=== PATIENT | female | born 1990 | race Caucasian/White ===

== ENCOUNTER 2018-06-22 11:10 | Inpatient (IN) ==
[2018-06-22] MEDS ORDERED: IOPAMIDOL 100 ML BOTTLE IV ONE (11:11)
[2018-06-22] MEDS ORDERED: ONDANSETRON 4 MG/2 ML VIAL IV ONE (11:51)
--- NOTE | 2018-06-22 11:53 | Emergency Department Note ---
Abdominal Pain HPI - General Chief Complaint: Abdominal Pain Stated Complaint: Abd pain Time Seen by Provider: 06/22/18 11:16 Source: patient Mode of arrival: ambulatory Limitations: no limitations - History of Present Illness HPI Narrative: This 27-year-old female comes to the emergency room with a history of abdominal discomforts and problems in the past. [facility] who gave her some pills but she is uncertain of exact nature type. She describes onset of pain this morning around 6 AM that is so severe she can hardly move. She has not had pain like this previously. She is not passing flatus. She is unable to push to have a bowel movement but does not feel like she has to. She has been nauseated and had some dry heaves. She denies diarrhea. She has had constipation for a couple of days. She denies hematochezia. She has no urinary dysuria but some frequency that is new. She denies fevers but has not checked it. She has had some hot and cold spells today. No sweatiness. Has some back pain through the lower back area. She also had a headache last evening. REVIEW OF SYSTEMS: See above also Denies chest pain, palpitations. Denies shortness of breath. Has a history of hepatitis C but has not been treated for this. Denies rashes. Has a history of seizure disorder and is supposed to be on a medication sprinkles but takes them intermittently. Denies depression. Has a history of anxiety and bipolar. Denies history of sexually transmitted infections. Has had some recent fatigue tiredness. - Related Data Home Medications Medication Instructions Recorded Confirmed No Known Home Meds 06/22/18 06/22/18 Allergies Allergy/AdvReac Type Severity Reaction Status Date / Time latex Allergy Verified 06/22/18 11:11 Abdominal Pain PMH - Past Medical History Medical history: Reports: seizures (not consistently taking medication.), other (poor dental health. HEPATITIS C. DENIES: ovarian cysts, PUD, pancreatitis, diverticulitis.). Denies: cancer, DM, hypertension, thyroid disease Surgical history ED: Reports: appendectomy, tubal ligation Psychiatric history: Reports: anxiety, bipolar. Denies: depression - Social History Smoking status: Current every day smoker (1 pack per day.) Alcohol use: Reports: Heavy (6-8 larger Margaritas per day) Drug use: Reports: marijuana (Fairly regular fairly heavy but not daily per mother.), methamphetamine (most recently smoked a couple of days ago (8.29.18)) , other (Past illegal or recreational. Past narcotics.) Physical Exam Limitations: no limitations General appearance: alert, in distress (Some moaning and raising in squirming and pain rather continuously.) Head: atraumatic, normocephalic Eye: Present: normal appearance, PERRL, EOMI. Absent: scleral icterus, conjunctival injection ENT: mucous membranes moist, other (Edentulous upper.) Neck: Present: trachea midline. Absent: lymphadenopathy, thyromegaly Respiratory: Present: normal lung sounds bilaterally. Absent: respiratory distress, wheezes, stridor, accessory muscle use, prolonged expiratory phase Cardiovascular: Present: regular rate, normal rhythm. Absent: systolic murmur, diastolic murmur Abdominal: Present: soft, tenderness. Absent: distention, guarding, rebound, rigidity, organomegaly, mass Abdominal tenderness: Present: diffuse Extremities: Absent: pedal edema, pretibial edema, calf tenderness Back: Present: tenderness (mildly subjectively mid to mid lower.). Absent: CVA tenderness (R), CVA tenderness (L), spinous process tenderness Neurological: Present: alert, oriented X3 Psychiatric: Present: normal mood, other (Some serious and consternation facies. ) Skin: Present: warm, dry Course Course Narrative: 11:37 AM New abdominal pain on a history of alcoholism and past illegal/recreational drug use and fairly regular or heavy marijuana use. Multiple labs. Also constipation - start with plain films for imaging. 1:12 PM Still some nausea. Will give some promethazine. Labs are with a white count of 6.4 and no anemia. Slightly concentrated hemoglobin at 15.8. INR is normal at 1.1. She does not appear to be dehydrated with a urine specific gravity 1.016 and a BUN of 3 and creatinine of 0.6. Does have elevated liver function tests with 214 AST in 93 ALT. Lipase is moderately elevated at 498 with normal being less than 60. Drug screen is positive for amphetamines and THC. UA dip has mild leukocyte esterase but had 10 apneas and only 3 WBCs. X-rays abdomen are unremarkable. Will go to ultrasound to look for causes of her diffuse abdominal pain. 2:30 PM Approximately Ultrasound demonstrated edema around the pancreas making pancreatitis most likely. Etiology is still most likely alcohol but with no previous recent CT will order CT abdomen and pelvis because of the diffuseness of her abdominal pain. Her nausea/vomiting is significantly improved but she continues to have significant pain least when she is holding still. Urine drug screen included positive for amphetamines. Patient admits to smoking meth a couple of days ago. Pending discussion also with hospitalist regarding oral challenge and whether this could be handled outpatient versus needs inpatient observation. Vital Signs Temperature 97.8 F 06/22/18 11:11 Pulse Rate 74 06/22/18 11:11 Respiratory Rate 20 06/22/18 11:11 Blood Pressure 154/124 06/22/18 11:11 Pulse Oximetry (%) 94 06/22/18 11:11 Temperature 97.8 F 06/22/18 11:11 Pulse Rate 73 06/22/18 15:11 Respiratory Rate 20 06/22/18 11:11 Blood Pressure 132/97 06/22/18 15:11 Pulse Oximetry (%) 98 06/22/18 15:11 Abdominal Pain - MDM Narrative Medical decision making narrative: In discussing patient's circumstances with hospitalist, Dr. Byers, agreement that would be best for patient to be admitted and given additional treatment for nausea, pain, IV fluid hydration, monitoring for alcohol withdrawal, etc. He kindly accepts this patient's care. - Lab Data Result diagrams: 06/22/18 11:59 06/22/18 11:59 Lab Results 06/22/18 06/22/18 06/22/18 Range/Units 11:15 11:15 11:59 WBC 6.4 (4.5-11.0) K/mcL RBC 5.05 (4.00-5.20) M/mcL Hgb 15.8 H (12.0-15.0) g/dL Hct 46.3 (36.0-48.0) % MCV 91.7 (80.0-100.0) fL MCH 31.3 (26.0-34.0) pg MCHC 34.2 (31.0-36.0) g/dL RDW 12.6 (11.5-14.5) % Plt Count 208 (140-440) K/mcL MPV 9.1 (7.4-10.4) fL Gran % 74.0 (38.0-78.0) % Lymph % (Auto) 15.1 L (15.5-49.0) % [place] % (Auto) 9.8 (1.0-12.0) % Eos % (Auto) 0.5 (0.0-7.0) % Baso % (Auto) 0.6 (0.0-2.0) % Gran # 4.7 (1.8-8.0) K/mcL Lymph # (Auto) 1.0 L (1.5-4.8) K/mcL [place] # (Auto) 0.6 (0.1-0.9) K/mcL Eos # (Auto) 0 (0.0-0.7) K/mcL Baso # (Auto) 0 (0.0-0.3) K/mcL PT (11.9-14.5) sec INR (0.9-1.1) APTT (20-37) sec Sodium (133-145) mmol/L Potassium (3.3-5.1) mmol/L Chloride (96-108) mmol/L Carbon Dioxide (22-30) mmol/L Anion Gap (8-16) BUN (6-20) mg/dl Creatinine (0.6-1.1) mg/dl GFR Calculation Glucose (70-105) mg/dL Calcium (8.6-10.4) mg/dl Total Bilirubin (0.0-1.0) mg/dL AST (0-37) U/l ALT (0-40) U/l Alkaline Phosphatase (39-117) U/L C-Reactive Protein (0.0-0.8) mg/dl Total Protein (5.9-8.4) gm/dL Albumin (3.2-5.2) gm/dL Globulin (2.2-3.7) gm/dL Albumin/Globulin Ratio (1.0-2.3) Lipase (7-60) U/L Urine Color Yellow Urine Appearance Cloudy Urine pH 8.0 (5.0-9.0) Ur Specific [place] 1.016 (1.000-1.035) Urine Protein 30 A (NEG) mg/dL Urine Glucose (UA) Negative (NEG) mg/dL Urine Ketones Neg (NEG) mg/dL Urine Occult Blood Neg (<0.03) mg/dL Urine Nitrate Neg (NEG) Urine Bilirubin Neg (NEG) mg/dL Urine Urobilinogen 2.0 A (NEG) mg/dL Ur Leukocyte Esterase 25 A (NEG) /uL Urine RBC 1 (0-1) /hpf Urine WBC 3 (0-4) /hpf Ur Squamous Epith Cells 10 H (0-4) /hpf Urine Bacteria 0 (0) /hpf Urine Mucus Many A (0) /hpf Ur Culture Indicated? No Urine Opiates Screen None detected (NONDETECTED) Ur Opiates Confirm Not Reportable Ur Oxycodone Screen None detected (NONDETECTED) Urine Methadone Screen None detected (NONDETECTED) Ur Methadone Confirm Not Reportable Ur Barbiturates Screen None detected (NONDETECTED) Ur Barbiturate Confirm Not Reportable Ur Phencyclidine Scrn None detected (NONDETECTED) Urine PCP Confirm Not Reportable Ur Amphetamines Screen Suspect positive A (NONDETECTED) U Benzodiazepines Scrn None detected (NONDETECTED) U Benzodiazepine Confm Not Reportable Urine Cocaine Screen None detected (NONDETECTED) Urine Cocaine Confirm Not Reportable U Cannabinoids Confirm Not Reportable U Marijuana (THC) Screen Suspect positive A (NONDETECTED) Urine Alcohol None detected (NONDETECTED) 06/22/18 06/22/18 Range/Units 11:59 11:59 WBC (4.5-11.0) K/mcL RBC (4.00-5.20) M/mcL Hgb (12.0-15.0) g/dL Hct (36.0-48.0) % MCV (80.0-100.0) fL MCH (26.0-34.0) pg MCHC (31.0-36.0) g/dL RDW (11.5-14.5) % Plt Count (140-440) K/mcL MPV (7.4-10.4) fL Gran % (38.0-78.0) % Lymph % (Auto) (15.5-49.0) % [place] % (Auto) (1.0-12.0) % Eos % (Auto) (0.0-7.0) % Baso % (Auto) (0.0-2.0) % Gran # (1.8-8.0) K/mcL Lymph # (Auto) (1.5-4.8) K/mcL [place] # (Auto) (0.1-0.9) K/mcL Eos # (Auto) (0.0-0.7) K/mcL Baso # (Auto) (0.0-0.3) K/mcL PT 14.5 (11.9-14.5) sec INR 1.1 (0.9-1.1) APTT 26 (20-37) sec Sodium 139 (133-145) mmol/L Potassium 3.3 (3.3-5.1) mmol/L Chloride 98 (96-108) mmol/L Carbon Dioxide 29 (22-30) mmol/L Anion Gap 12.0 (8-16) BUN 3 L (6-20) mg/dl Creatinine 0.6 (0.6-1.1) mg/dl GFR Calculation 123 Glucose 90 (70-105) mg/dL Calcium 9.3 (8.6-10.4) mg/dl Total Bilirubin 1.0 (0.0-1.0) mg/dL AST 214 H (0-37) U/l ALT 93 H (0-40) U/l Alkaline Phosphatase 106 (39-117) U/L C-Reactive Protein < 0.3 (0.0-0.8) mg/dl Total Protein 7.4 (5.9-8.4) gm/dL Albumin 4.1 (3.2-5.2) gm/dL Globulin 3.3 (2.2-3.7) gm/dL Albumin/Globulin Ratio 1.2 (1.0-2.3) Lipase 498 H (7-60) U/L Urine Color Urine Appearance Urine pH (5.0-9.0) Ur Specific [place] (1.000-1.035) Urine Protein (NEG) mg/dL Urine Glucose (UA) (NEG) mg/dL Urine Ketones (NEG) mg/dL Urine Occult Blood (<0.03) mg/dL Urine Nitrate (NEG) Urine Bilirubin (NEG) mg/dL Urine Urobilinogen (NEG) mg/dL Ur Leukocyte Esterase (NEG) /uL Urine RBC (0-1) /hpf Urine WBC (0-4) /hpf Ur Squamous Epith Cells (0-4) /hpf Urine Bacteria (0) /hpf Urine Mucus (0) /hpf Ur Culture Indicated? Urine Opiates Screen (NONDETECTED) Ur Opiates Confirm Ur Oxycodone Screen (NONDETECTED) Urine Methadone Screen (NONDETECTED) Ur Methadone Confirm Ur Barbiturates Screen (NONDETECTED) Ur Barbiturate Confirm Ur Phencyclidine Scrn (NONDETECTED) Urine PCP Confirm Ur Amphetamines Screen (NONDETECTED) U Benzodiazepines Scrn (NONDETECTED) U Benzodiazepine Confm Urine Cocaine Screen (NONDETECTED) Urine Cocaine Confirm U Cannabinoids Confirm U Marijuana (THC) Screen (NONDETECTED) Urine Alcohol (NONDETECTED) Disposition Pt seen by FRONT OFFICE ADMINISTRATOR/PA only: No Clinical Impression: Elevated LFTs, Chronic alcoholism, Amphetamine abuse Nausea & vomiting Qualifiers: Vomiting type: unspecified Vomiting Intractability: non-intractable Qualified Code(s): R11.2 - Nausea with vomiting, unspecified Abdominal pain Qualifiers: Abdominal location: generalized Qualified Code(s): R10.84 - Generalized abdominal pain Pancreatitis Qualifiers: Chronicity: acute Pancreatitis type: alcohol induced Acute pancreatitis complication: no infection or necrosis Qualified Code(s): K85.20 - Alcohol induced acute pancreatitis without necrosis or infection Chronic hepatitis C Qualifiers: Hepatic coma status: without hepatic coma Qualified Code(s): B18.2 - Chronic viral hepatitis C Disposition: Xfer As Inpt ([facility]) Condition: Fair Referrals: Alfred Galeano MD [Primary Care Provider] -
[2018-06-22] MEDS: HYDROmorphone 2 MG/ML VIAL IV PRN ×5 (12:00→22:35)
[2018-06-22 12:24] LABS: Appearance,Urine CLOUDY; Bacteria,Urine 0 /hpf (0); Bilirubin,Urine NEG (NEG); Color,Urine YELLOW; Glucose,Urine (UA) NEGATIVE (NEG); Leukocyte Esterase,Urine 25 /uL (NEG); Mucus,Urine MANY /hpf (0); Protein,Urine 30 mg/dL (NEG); Specific Gravity,Urine 1.016 (1.000-1.035); Urine Blood NEG mg/dL (<0.03); Urine RBC 1 /hpf (0-1); Urine Squamous Epithelial Cell 10 /hpf (0-4); Urine WBC 3 /hpf (0-4)
[2018-06-22 12:26] LABS: Amphetamine Screen,Urine SUSPECT POSITIVE (NONDETECTED); Benzodiazepines Screen,Urine NONE DETECTED (NONDETECTED); Cocaine Screen,Urine NONE DETECTED (NONDETECTED); Opiate Screen,Urine NONE DETECTED (NONDETECTED); Oxycodone, Urine Screen NONE DETECTED (NONDETECTED)
[2018-06-22 12:29] LABS: Basophils # (Auto) 0 K/mcL (0.0-0.3); Basophils % (Auto) 0.6 % (0.0-2.0); Eosinophils # (Auto) 0 K/mcL (0.0-0.7); Eosinophils % (Auto) 0.5 % (0.0-7.0); Lymphocytes % (Auto) 15.1 % (15.5-49.0); Mean Cell Volume 91.7 fL (80.0-100.0); Mean Corpuscular HGB Conc 34.2 g/dL (31.0-36.0); Mean Corpuscular Hemoglobin 31.3 pg (26.0-34.0); Monocytes # (Auto) 0.6 K/mcL (0.1-0.9); Monocytes % (Auto) 9.8 % (1.0-12.0); Platelet Count 208 K/mcL (140-440); RBC 5.05 M/mcL (4.00-5.20); Red Cell Distribution Width 12.6 % (11.5-14.5)
--- NOTE | 2018-06-22 12:47 | XRay Report ---
CLINICAL INFORMATION: Diffuse abdominal pain and vomiting COMPARISON: None. FINDINGS: The stool gas pattern is unremarkable. There is no free air, soft tissue mass, organomegaly or pathologic calcification. IMPRESSION: Normal abdomen Interpreted and Authenticated by: Moiz Walsh 06/22/18
[2018-06-22 13:00] LABS: ALT/SGPT 93 U/l (0-40); Albumin 4.1 gm/dL (3.2-5.2); Albumin/Globulin Ratio 1.2 (1.0-2.3); Alkaline Phosphatase 106 U/L (39-117); Blood Urea Nitrogen 3 mg/dl (6-20); C-Reactive Protein < 0.3 mg/dl (0.0-0.8); Lipase 498 U/L (7-60)
[2018-06-22] MEDS ORDERED: PROMETHAZINE 25 MG/ML VIAL IV ONE (13:13)
--- NOTE | 2018-06-22 15:15 | Ultrasound Report ---
CLINICAL INFORMATION: Diffuse abdominal pain COMPARISON: None. FINDINGS: Liver is normal in size and echotexture without focal hepatic lesion. Gallbladder and bile ducts are normal: CBD is 4 mm. The pancreas is mildly enlarged and hypoechoic which likely indicates pancreatitis. Small amount of fluid is seen in the peripancreatic region Both kidneys, spleen, aorta and IVC are normal in size and echotexture IMPRESSION: Suspect simple pancreatitis. Please correlate with amylase/lipase and consider upper abdomen CT Interpreted and Authenticated by: Moiz Walsh 06/22/18
[2018-06-22] MEDS ORDERED: LACTATED RINGERS 1,000 ML IV ONE (16:08)
--- NOTE | 2018-06-22 16:12 | Cat Scan Report ---
CLINICAL INFORMATION: Abdominal pain COMPARISON: None. TECHNIQUE: Following enteric contrast, 80 cc of Isovue-300 were injected intravenously, and 60 seconds later, 0.625 mm helical slices were obtained from the mid heart through the subtrochanteric regions. Following reconstruction, 2.5 mm sagittal, coronal and axial reformatted images were processed and reviewed at bone, lung and soft tissue windows. Five minutes later, 0.625 mm helical slices were obtained from the mid heart through the kidneys and viewed at soft tissue windows.The exam was performed using radiation dose optimization techniques including, but not limited to, automated exposure control, adjustment of the mA and/or kV according to patient size and use of iterative reconstruction technique. FINDINGS: Lung bases show no abnormality - no effusions. The visualized heart is normal. Images through the abdomen show minimal fatty change within the liver, but no focal hepatic lesions. The gallbladder and bile ducts are normal: CBD is 6 mm. The pancreas is diffusely enlarged with inhomogeneous low attenuation and a moderate amount of fluid in the peripancreatic fat planes extending into the lesser sac and upper retroperitoneum compatible with simple pancreatitis. The pancreatic duct is normal caliber - 2 mm. There is no abscess, necrosis pseudocyst or other complication of pancreatitis Both kidneys, adrenal glands, spleen and aorta, including aortic branches, are normal in size, configuration and attenuation without focal lesion. Stomach, small and large bowel are unremarkable. Appendix is not identified; however, there is no inflammation in the region of the appendix. The appendix may been surgically resected. Images through the pelvis show anteflexed uterus which is moderately enlarged: 10 x 6 cm. There is a scar in the anterior mid uterine body. Urinary bladder is normal. The region of the ovaries are normal. Mild enlargement of the periuterine uterine venous plexus. Tubal ligation clips noted. Bone windows show moderate broad T11-T12 disc spur complex left-sided asymmetry resulting in mild central canal and mild bilateral IV foraminal narrowing. No osseous lesions IMPRESSION: 1. Simple pancreatitis. Moderate fluid in the peripancreatic fat planes, lesser sac and upper retroperitoneum. 2. Moderately enlarged, anteflexed uterus. Most common cause would be adenomyosis. Mild congestion of the periuterine venous plexus. 3. Mild T11-T12 disc spur complex resulting in mild central canal and bilateral IV foraminal narrowing Interpreted and Authenticated by: Moiz Walsh 06/22/18
--- NOTE | 2018-06-22 17:22 | Internal Med History&Physical ---
Medical - H&P: HPI Patient information: Note initiated : 06/22/18 at 5:20 pm Service Date, if different from initiated Date: [] Patient: Ramya Parra a 27 y/o F admitted on for Abd pain. Chief Complaint: [] History of present illness: Ms. Parra is a 27 year old F with h/o hep c, heavy etoh consumption presents to the ER today for evaluation of abdominal pain. Patient on my eval was drowsy , s/p medication effect? patient history from chart and talking with the boyfriend in the room The pt has h/o heavy etoh consumption, she did not tell me how much but boyfriend noted she wakes up and starts drinking till the end of the day, also admitted thc, but denies other substances. pt notes pain in abdomen, every where started yesterday, nausea and some vomiting, worse with activity, worse with movement, better with laying still. This AM pain got worse, mother decided o bring her in. Denies fever, but has chills and hot flashes. The patient in the ER noted to be hemodynamically stable, labs stable, K 3.3, lipase 498, CT shows simple pancreatitis with periipancreatic fluid collection. Patient is being admitted to the hospital for further management. Unable to determine last drink, but boyfriend notes that she has h/o withdrawal and seizures. Educated pt and boyfriend the nature of disease and possibility of high risk mortality and morbidity because of pancreatitis. All systems: reviewed and no additional remarkable complaints except as stated ( as per HPI) Medical - H&P: PMH Medical history: Medical History Dental caries (Acute) Toothache (Acute) Bite by animal (Acute) Animal bite of upper arm (Acute) Encounter for wound re-check (Acute) Alcoholic intoxication (Acute) Dental caries (Acute) Contusion (Acute) hep c Family history: reviewed and not pertinent Social history: etoh drinker, heavy substace abuse, thc admitted, also suspect meth (ER provider noted that she agreed to it) Medical - H&P: Meds Home Medications Medication Instructions Recorded Confirmed Type No Known Home Meds 06/22/18 06/22/18 History Allergies Allergy/AdvReac Type Severity Reaction Status Date / Time latex Allergy Verified 06/22/18 11:11 Medical - H&P: Exam - Constitutional Vitals: Temp Pulse Resp BP Pulse Ox 97.8 F 96 H 20 135/97 98 06/22/18 11:11 06/22/18 17:05 06/22/18 11:11 06/22/18 16:33 06/22/18 17:05 Exam: GENERAL: The patient is a well-developed, well-nourished in no apparent distress. Is drowsy and oriented x3 . VITAL SIGNS: Reviewed and as noted elsewhere. HEENT: Head is normocephalic and atraumatic. Extraocular muscles are intact. Pupils are equal, round, and reactive to light. Nares appeared normal. Mouth appears any without lesions. Mucous membranes are dry, absent teeth. uin upper jaw, unable to do complete exam, lack of pt cooperation. NECK: Normal to inspection, Supple, No lymphadenopathy or thyromegaly. LUNGS: Air entry equal on both sides, no wheezing, crackles or rhonchi noted. No accessory muscles of respiration HEART: Regular rate and rhythm normal, S1 and S2 heard, no Gallop, S3 or Rub Noted, No Gross murmur heard. ABDOMEN: Soft, diffuse generalized tenderness, hypoactive bowel sounds. No hepatosplenomegaly was noted. EXTREMITIES: No cyanosis, clubbing, rash, lesions or edema. NEUROLOGIC: Cranial nerves II through XII are grossly intact. Motor and Sensory System Grossly Intact PSYCHIATRIC: drowsy, agitated SKIN: No ulceration or wounds noted, No jaundice, No rash noted. Medical - H&P: Reslt - Labs CBC & Chem 7: 06/22/18 11:59 06/22/18 11:59 Labs: Short CBC 06/22/18 Range/Units 11:59 WBC 6.4 (4.5-11.0) K/mcL Hgb 15.8 H (12.0-15.0) g/dL Hct 46.3 (36.0-48.0) % Plt Count 208 (140-440) K/mcL BMP 06/22/18 11:59 Sodium 139 Potassium 3.3 Chloride 98 Carbon Dioxide 29 BUN 3 L Creatinine 0.6 Glucose 90 Calcium 9.3 Liver Function 06/22/18 Range/Units 11:59 Total Bilirubin 1.0 (0.0-1.0) mg/dL AST 214 H (0-37) U/l ALT 93 H (0-40) U/l Alkaline Phosphatase 106 (39-117) U/L Albumin 4.1 (3.2-5.2) gm/dL Urine 06/22/18 Range/Units 11:15 Urine Color Yellow Urine Appearance Cloudy Urine pH 8.0 (5.0-9.0) Ur Specific [place] 1.016 (1.000-1.035) Urine Protein 30 A (NEG) mg/dL Urine Glucose (UA) Negative (NEG) mg/dL Medical - H&P: A/P - Narrative A/P Narrative: A/P acute pancreatitis Alcohol withdrawal hepatitis C Heavy alcohol abuse Polysubstance Abuse Plan Admit to med surg IV fluids Pain management with narcotics IV fluids, replace K monitor lytes trend lipase Ciwa protocol ativan prn iv thiamine Full code liquid diet Hep for dvt prophylaxis.
[2018-06-22] MEDS ORDERED: cloNIDine HCL 0.1 MG TABLET PO PRN (18:03)
[2018-06-22] MEDS ORDERED: HALOPERIDOL LACTATE 5 MG/ML VIAL IM PRN (18:03)
[2018-06-22] MEDS ORDERED: KETOROLAC 30 MG/ML VIAL IV PRN (18:03)
[2018-06-22] MEDS ORDERED: DIAZEPAM 5 MG TABLET PO PRN (18:03)
[2018-06-22] MEDS ORDERED: NALOXONE HCL 0.4 MG/ML VIAL IV PRN (18:03)
[2018-06-22] MEDS ORDERED: LORazepam 2 MG/ML VIAL IV PRN (18:03)
[2018-06-22] MEDS ORDERED: HYDROmorphone 2 MG/ML VIAL ONE (18:19)
[2018-06-22] MEDS: DEXTROSE 5%-LR W/20MEQ KCL 1,000 ML IV SCH (18:21)
[2018-06-22] MEDS: PANTOPRAZOLE 40 MG VIAL IV SCH (19:40)
[2018-06-22] MEDS: 0.9 % SODIUM CHLORIDE 10 ML SYRINGE IV SCH ×3 (19:43→21:19)
[2018-06-22 20:29] LABS: Amylase 355 U/L (28-100); Lipase 1425 U/L (7-60)
[2018-06-22] MEDS: HEPARIN 5,000 UNIT/ML VIAL SQ SCH (20:37)
[2018-06-22] MEDS: THIAMINE 100 MG in 0.9 % SODIUM CHLORIDE 50 ML IV SCH (20:46)
[2018-06-22] MEDS: oxyCODONE HCL 5 MG TABLET PO PRN (22:34)
[2018-06-23] MEDS: DEXTROSE 5%-LR W/20MEQ KCL 1,000 ML IV SCH ×3 (00:46→09:11)
[2018-06-23] MEDS: HYDROmorphone 2 MG/ML VIAL IV PRN ×4 (00:53→18:10)
[2018-06-23] MEDS: oxyCODONE HCL 5 MG TABLET PO PRN ×2 (02:27→07:15)
[2018-06-23] MEDS: 0.9 % SODIUM CHLORIDE 10 ML SYRINGE IV SCH ×2 (05:34)
[2018-06-23 05:35] LABS: Basophils # (Auto) 0 K/mcL (0.0-0.3); Basophils % (Auto) 0.2 % (0.0-2.0); Eosinophils # (Auto) 0 K/mcL (0.0-0.7); Eosinophils % (Auto) 0.1 % (0.0-7.0); Granulocytes % (Auto) 85.6 % (38.0-78.0); Lymphocytes # (Auto) 0.7 K/mcL (1.5-4.8); Lymphocytes % (Auto) 6.2 % (15.5-49.0); Mean Corpuscular HGB Conc 33.3 g/dL (31.0-36.0); Mean Corpuscular Hemoglobin 31.3 pg (26.0-34.0); Monocytes # (Auto) 0.9 K/mcL (0.1-0.9); Monocytes % (Auto) 7.9 % (1.0-12.0); Platelet Count 214 K/mcL (140-440); RBC 5.56 M/mcL (4.00-5.20); Red Cell Distribution Width 12.6 % (11.5-14.5)
[2018-06-23 05:44] LABS: ALT/SGPT 58 U/l (0-40); Albumin 3.4 gm/dL (3.2-5.2); Albumin/Globulin Ratio 1.2 (1.0-2.3); Alkaline Phosphatase 91 U/L (39-117); Amylase 540 U/L (28-100); Bilirubin,Direct 0.3 mg/dL (0.0-0.3); Blood Urea Nitrogen 4 mg/dl (6-20); Gamma Glutamyl Transpeptidase 464 U/L (5-36); Uric Acid 3.6 mg/dL (2.5-8.0)
[2018-06-23 06:00] LABS: Lipase 1741 U/L (7-60)
[2018-06-23] MEDS: PANTOPRAZOLE 40 MG VIAL IV SCH (07:16)
[2018-06-23] MEDS ORDERED: LORazepam 2 MG/ML VIAL IV PRN (08:05)
[2018-06-23] MEDS: THIAMINE 100 MG in 0.9 % SODIUM CHLORIDE 50 ML IV SCH (08:32)
[2018-06-23] MEDS ORDERED: FOLIC ACID 1 MG TABLET PO SCH (09:00)
[2018-06-23] MEDS ORDERED: DIAZEPAM 5 MG TABLET PO SCH ×2 (09:00→17:00)
[2018-06-23] MEDS ORDERED: MAGNESIUM SULFATE 2 GM/50 ML BAG IV ONE (09:00)
[2018-06-23] MEDS ORDERED: MULTIVIT,THER IRON,CA,FA & MIN 1 TABLET PO SCH (09:00)
[2018-06-23] MEDS: HEPARIN 5,000 UNIT/ML VIAL SQ SCH (09:12)
[2018-06-23] MEDS ORDERED: 0.9 % SODIUM CHLORIDE 1,000 ML IV ONE ×2 (12:49→13:31)
--- NOTE | 2018-06-23 12:55 | Internal Med Progress Note ---
Medical - PN: Subj Patient information: Note initiated : 06/23/18 at 12:53 pm Service Date, if different from initiated Date: [] Patient: Ramya Parra a 27 y/o F admitted on 06/22/18 for Abd Pain/Pancreatitis , Alcohol Withdrawal. Chief Complaint: [] Interval history: Ms. Parra is a 27 year old F with h/o hep c, heavy etoh consumption presents to the ER today for evaluation of abdominal pain. Patient on my eval was drowsy , s/p medication effect? patient history from chart and talking with the boyfriend in the room The pt has h/o heavy etoh consumption, she did not tell me how much but boyfriend noted she wakes up and starts drinking till the end of the day, also admitted thc, but denies other substances. pt notes pain in abdomen, every where started yesterday, nausea and some vomiting, worse with activity, worse with movement, better with laying still. This AM pain got worse, mother decided o bring her in. Denies fever, but has chills and hot flashes. The patient in the ER noted to be hemodynamically stable, labs stable, K 3.3, lipase 498, CT shows simple pancreatitis with periipancreatic fluid collection. Patient is being admitted to the hospital for further management. Unable to determine last drink, but boyfriend notes that she has h/o withdrawal and seizures. Educated pt and boyfriend the nature of disease and possibility of high risk mortality and morbidity because of pancreatitis. 06/23 Patient seen examined, overnight stble, but very tachcyardic, hr 120-130 this AM CIWA Scores high, needing frequent assesstment Lipase trending up now 1700's pt still has abdominal pain, but not complaining much, on ativan and dilaudid for now Her hb trended up today? abdomen is somewhat distrended only 250 cc documented urine output. will place [place], on talking with nurse, pt missed the urine hat? Given her pancreatitis issue, need for closer monitoring, tachcyardia, alcohol withdrawal, will xfer her to PCU status. Pertinent ROS: Denies headache, dizziness Denies chest pain, palpitations Denies cough or shortness of breath present abdominal pain, and nausea and vomiting. Additional PMFSH (Level 3 Only): Medical History Dental caries (Acute) Toothache (Acute) Bite by animal (Acute) Animal bite of upper arm (Acute) Encounter for wound re-check (Acute) Alcoholic intoxication (Acute) Dental caries (Acute) Contusion (Acute) - Constitutional Vitals: Vital Signs Temp Pulse Resp BP Pulse Ox 97.2 F 117 H 16 123/110 97 06/23/18 12:00 06/23/18 12:00 06/23/18 12:00 06/23/18 12:00 06/23/18 12:00 Period Temp Pulse Resp BP Sys/Márquez Pulse Ox Last 24 Hr 96.5 F-97.3 F 70-117 16-16 123-160/88-111 92-100 Intake and Output 06/22/18 06/23/18 06/23/18 21:59 05:59 13:59 Intake Total 1383 / 1383 1155 / 1155 1000 / 1000 Output Total 450 / 450 Balance 1383 / 1383 705 / 705 1000 / 1000 Weight 150 lb Intake & Output: Intake & Output 06/22/18 06/23/18 06/23/18 21:59 05:59 13:59 Intake Total 1383 / 1383 1155 / 1155 1000 / 1000 Output Total 450 / 450 Balance 1383 / 1383 705 / 705 1000 / 1000 Weight 150 lb Intake: IV 1383 / 1383 668 / 668 1000 / 1000 Dextrose 5%-Lr W/20Meq KCl 1, 383 / 383 617 / 617 1000 / 1000 000 ml @ 150 mls/hr IV .Q6H40M [facility] Rx#:[id number] Lactated Ringers 1,000 ml @ 1000 / 1000 Wide Open IV BOLUS ONE Rx#: [id number] Vitamin B1 100 mg In Sodium 51 / 51 Chloride 0.9% 50 ml @ 50 mls/hr IV DAILY [facility] Rx#:[id number] Oral 487 / 487 Output: Void Amount 250 / 250 Emesis 200 / 200 Other: Urine Appearance Clear Clear Urine Color Dark Shraddha Dark Shraddha # Voids 1 1 Exam: Constitutional; Afebrile, cooperative, drowsy, not in distress. low grade tremors Eyes- No icterus, , No periorbital swelling Ears- Ext ear normal, hearing normal to conversation. Neck- Midline trachea, supple Respiratory system: Air Entry equal on both sides, No crackles or wheezing, no rhonchi. CVS- Rate tachycardic rhythm regular, S1,S2 heard, no gallop, no rub. Abdomen- mildly distended, tender overall to deep palpation, hypoactive bowel sounds. no organomegaly, CAR DELIVERER- AOOx3, moving all extremities, no gross focal deficit noted. Medical - PN: Obj Da - Labs CBC & Chem 7: 06/23/18 04:02 06/23/18 04:02 Labs: Abnormal Lab Results 06/23/18 06/23/18 06/22/18 04:02 04:02 18:36 WBC 11.1 H RBC 5.56 H Hgb 17.4 H Hct 52.2 H Gran % 85.6 H Lymph % (Auto) 6.2 L Gran # 9.5 H Lymph # (Auto) 0.7 L BUN 4 L Glucose 131 H Magnesium 1.3 L Total Bilirubin 1.1 H GGT 464 H AST 84 H ALT 58 H Amylase 540 H 355 H Lipase 1741 H 1425 H Urine Protein Urine Urobilinogen Ur Leukocyte Esterase Ur Squamous Epith Cells Urine Mucus Ur Amphetamines Screen U Marijuana (THC) Screen 06/22/18 06/22/18 06/22/18 11:59 11:59 11:15 WBC RBC Hgb 15.8 H Hct Gran % Lymph % (Auto) 15.1 L Gran # Lymph # (Auto) 1.0 L BUN 3 L Glucose Magnesium Total Bilirubin GGT AST 214 H ALT 93 H Amylase Lipase 498 H Urine Protein Urine Urobilinogen Ur Leukocyte Esterase Ur Squamous Epith Cells Urine Mucus Ur Amphetamines Screen Suspect positive A U Marijuana (THC) Screen Suspect positive A 06/22/18 11:15 WBC RBC Hgb Hct Gran % Lymph % (Auto) Gran # Lymph # (Auto) BUN Glucose Magnesium Total Bilirubin GGT AST ALT Amylase Lipase Urine Protein 30 A Urine Urobilinogen 2.0 A Ur Leukocyte Esterase 25 A Ur Squamous Epith Cells 10 H Urine Mucus Many A Ur Amphetamines Screen U Marijuana (THC) Screen Meds: Medications Clonidine HCl (Catapres) 0.1 mg PO Q4HP PRN PRN Reason: Alcohol Withdrawal Last Admin: 06/23/18 03:06 Dose: 0.1 mg Diazepam (Valium) 5 mg PO Q8H [facility] Last Admin: 06/23/18 09:11 Dose: 5 mg Folic Acid (Folic Acid) 1 mg PO DAILY [facility] Last Admin: 06/23/18 09:11 Dose: 1 mg Haloperidol Lactate (Haldol) 0.5 mg IM Q2HP PRN PRN Reason: Alcohol Withdrawal Heparin Sodium (Porcine) (Heparin) 5,000 unit SQ Q12 [facility] Last Admin: 06/23/18 09:12 Dose: 5,000 unit Hydromorphone HCl (Dilaudid) 0.5 - 1 mg IV Q2HP PRN PRN Reason: PAIN LEVEL > 6 Last Admin: 06/23/18 03:14 Dose: 0.5 mg Potassium Cl/Dextrose/Lact Ringer's (Dextrose 5%-Lr W/20meq Kcl) 1,000 mls @ 150 mls/hr IV .Q6H40M [facility] Last Admin: 06/23/18 09:11 Dose: 150 mls/hr Thiamine HCl 100 mg/ Sodium (Chloride) 51 mls @ 50 mls/hr IV DAILY [facility] Last Admin: 06/23/18 08:32 Dose: 50 mls/hr Sodium Chloride (Sodium Chloride 0.9%) 1,000 mls @ 0 mls/hr IV BOLUS ONE Stop: 06/23/18 12:50 Iron Carb/Multivit/[place]/Folic Acid (Multivitamin W/Minerals) 1 tab PO DAILY [facility] Last Admin: 06/23/18 09:11 Dose: 1 tab Ketorolac Tromethamine (Toradol) 30 mg IV Q6HP PRN PRN Reason: Pain Stop: 06/24/18 17:12 Last Admin: 06/23/18 07:38 Dose: 30 mg Lorazepam (Ativan) 0 mg IV Q2HP PRN; Protocol PRN Reason: Alcohol Withdrawal Naloxone HCl (Narcan) 0.1 mg IV Q2MIN PRN PRN Reason: Opiate Reversal Oxycodone HCl (Roxicodone) 5 mg PO Q4HP PRN PRN Reason: Pain Level 2-6 Last Admin: 06/23/18 07:15 Dose: 5 mg Pantoprazole Sodium (Protonix) 40 mg IV BIDAC [facility] Last Admin: 06/23/18 07:16 Dose: 40 mg Sodium Chloride (Saline Flush) 10 ml IV Q8 [facility] Last Admin: 06/23/18 05:34 Dose: Not Given Sodium Chloride (Saline Flush) 10 ml IV Q8 [facility] Last Admin: 06/23/18 05:34 Dose: Not Given Medical - PN: A/P - Time Spent With Patient Total time spent is greater than 50% in coordination of care (as documented) at patient's floor/unit and/or counseling patient: - Narrative A/P Narrative: A/P acute pancreatitis Alcohol withdrawal hepatitis C Heavy alcohol abuse Polysubstance Abuse Hypomagnesemia Plan transfer to ICU [facility] valium and IV ativan for Alcohol withdrawal Trend lipase amylase labs show hemoconcentration low urine output IV fluids ongoing at 150cc /hr, give 1 L saline bolus repeat labs pm Pain management with dilaudid adequate replamce Magnesium continue IV thiamine Full code liquid diet Hep for dvt prophylaxis.
[2018-06-23] MEDS ORDERED: DEXTROSE 5%-LR W/20MEQ KCL 1,000 ML IV SCH (13:31)
[2018-06-23] MEDS ORDERED: NALOXONE HCL 0.4 MG/ML VIAL IV PRN (13:31)
[2018-06-23] MEDS ORDERED: cloNIDine HCL 0.1 MG TABLET PO PRN (13:31)
[2018-06-23] MEDS ORDERED: KETOROLAC 30 MG/ML VIAL IV PRN (13:31)
[2018-06-23] MEDS ORDERED: HALOPERIDOL LACTATE 5 MG/ML VIAL IM PRN (13:31)
[2018-06-23] MEDS ORDERED: oxyCODONE HCL 5 MG TABLET PO PRN (13:31)
[2018-06-23] MEDS ORDERED: 0.9 % SODIUM CHLORIDE 10 ML SYRINGE IV SCH ×2 (14:00)
[2018-06-23] MEDS: LORazepam 2 MG/ML VIAL IV PRN ×2 (14:16→19:55)
[2018-06-23 16:06] LABS: Basophils # (Auto) 0 K/mcL (0.0-0.3); Basophils % (Auto) 0.1 % (0.0-2.0); Eosinophils # (Auto) 0 K/mcL (0.0-0.7); Eosinophils % (Auto) 0.3 % (0.0-7.0); Granulocytes % (Auto) 86.5 % (38.0-78.0); Lymphocytes # (Auto) 0.5 K/mcL (1.5-4.8); Lymphocytes % (Auto) 5.2 % (15.5-49.0); Mean Cell Volume 92.8 fL (80.0-100.0); Mean Corpuscular HGB Conc 33.7 g/dL (31.0-36.0); Mean Corpuscular Hemoglobin 31.3 pg (26.0-34.0); Monocytes # (Auto) 0.8 K/mcL (0.1-0.9); Monocytes % (Auto) 7.9 % (1.0-12.0); Platelet Count 160 K/mcL (140-440); RBC 5.11 M/mcL (4.00-5.20); Red Cell Distribution Width 12.7 % (11.5-14.5)
[2018-06-23 16:21] LABS: Blood Urea Nitrogen 5 mg/dl (6-20); C-Reactive Protein 4.9 mg/dl (0.0-0.8)
[2018-06-23] MEDS ORDERED: PANTOPRAZOLE 40 MG VIAL IV SCH (17:00)
--- NOTE | 2018-06-23 20:32 | Nephrology Consult Note ---
History of Present Illness - Reason for Consult Patient information: Note initiated : 06/23/18 at 8:27 pm Service Date, if different from initiated Date: [] Patient: Ramya Parra 27 y/o F admitted on 06/22/18 for Abd Pain/Pancreatitis , Alcohol Withdrawal. Chief Complaint: [] Consult date: 06/23/18 acute renal failure Requesting physician: Mike Byers - Chief Complaint abdominal pain - History of Present Illness Patient is a 27 y/o white female with PMH of alcohol abuse who is admitted with acute pancreatitis. Patient is noted to be oliguric today and hence nephrology is been consulted Patient is unable to provide any history given ETOH withdrawal Patient presented to the ER yesterday with c/o abdominal pain, ongoing for a few days per her boy friend. She also had h/o recurrent vomiting for several days and poor po intake for 2-3 days before she came to the ER. She has h/o drinking beer all day long (containing 12% alcohol) and she would do this to prevent withdrawal She had no h/o using NSAIDS, tylenol no h/o SOB, CP, edema on presentation no h/o fever She had a CT abdomen with contrast done in the ER which showed simple pancreatitis and elevated lipase and hence hospitalised Patient today developed ETOH withdrawal and is been treated for the same, she also developed abdominal distension and oliguria Review of Systems ROS unobtainable: due to mental status All systems PM: reviewed and no additional remarkable complaints except as stated Past History Past medical history: h/o hepatitis C, not treated for the same h/o seizures Past surgical history: none Past family history: not pertinent Past social history: h/o alcohol abuse h/o methamphetamine use smokes half a pack of cig every day Medications and Allergies Home Medications Medication Instructions Recorded Confirmed Type No Known Home Meds 06/22/18 06/22/18 History Allergies Allergy/AdvReac Type Severity Reaction Status Date / Time latex Allergy Rash Verified 06/22/18 18:05 Exam - Vital Signs Vital signs: Temp Pulse Resp BP Pulse Ox 97.5 F 117 H 20 133/100 95 06/23/18 20:00 06/23/18 12:00 06/23/18 20:01 06/23/18 20:01 06/23/18 20:03 - General Appearance General appearance: appears started age EENT: mucous membranes moist Neck: no JVD Respiratory: clear Cardiology: no rub, no edema, regular rate, rapid rhythm Gastrointestinal: distended (tense, abdominal pressure noted to be 18 ) Integumentary: warm and dry Neurologic: obtunded Musculoskeletal: no erythema Psychiatric: mood/affect appropriate Results - Lab Results 06/23/18 15:29 06/23/18 15:29 Most recent lab results Calcium 7.6 mg/dl (8.6-10.4) L 06/23/18 15:29 Phosphorus 3.5 mg/dL (2.7-4.5) 06/23/18 04:02 Magnesium 1.3 mg/dL (1.6-2.5) L 06/23/18 04:02 Assessment and Plan (1) Acute renal failure patient is oliguric since this afternoon, had 2 unmeasured voids earlier during the day her s.creatinine is 0.5 unchanged from yesterday She likely has ATN from acute pancreatitis, possible volume depletion and use of contrast she has abdominal distension with increased abdominal pressure and ? this is contributing consider surgical consult given acute rise in abdominal pressure Continue IVF avoid nephrotoxic medications monitor I/O, daily weights, renal function will follow along Thank you for giving me an opportunity to participate in Ms Parra's medical care, appreciate it Status: Acute
[2018-06-23] MEDS ORDERED: HEPARIN 5,000 UNIT/ML VIAL SQ SCH (21:00)
--- NOTE | 2018-06-23 21:15 | Transfer Summary ---
Transfer Discharge Sum: Prov Patient information: Note initiated : 06/23/18 at 9:12 pm Service Date, if different from initiated Date: [] Patient: Ramya Parra 27 y/o F admitted on 06/22/18 for Abd Pain/Pancreatitis , Alcohol Withdrawal. Chief Complaint: [] Date of admission: 06/22/18 17:45 Discharge Date: 06/23/18 Primary care physician: Alfred Galeano Admitting clinician: Mike Byers Consults: 06/22/18 Consult to Physician [CONS] Stat Comment: Consulting Provider: Mike Byers Reason For Exam: Physician to Consult 06/23/18 15:41 Consult to Physician [CONS] Routine Comment: oligoruia Consulting Provider: Adele Colon Reason For Exam: Physician to Consult Discharging clinician: Mike Byers Receiving physician/facility: Dr Maciel Transfer Discharge Sum: Med - Medications Active and Home Medications: Home Medications No Known Home Meds 06/22/18 [History Confirmed 06/22/18] Active Medications Clonidine HCl (Catapres) 0.1 mg PO Q4HP PRN PRN Reason: Alcohol Withdrawal Diazepam (Valium) 5 mg PO Q8H [facility] Last Admin: 06/23/18 17:22 Dose: 5 mg Folic Acid (Folic Acid) 1 mg PO DAILY [facility] Haloperidol Lactate (Haldol) 0.5 mg IM Q2HP PRN PRN Reason: Alcohol Withdrawal Heparin Sodium (Porcine) (Heparin) 5,000 unit SQ Q12 [facility] Hydromorphone HCl (Dilaudid) 0.5 - 1 mg IV Q2HP PRN PRN Reason: PAIN LEVEL > 6 Last Admin: 06/23/18 18:10 Dose: 1 mg Potassium Cl/Dextrose/Lact Ringer's (Dextrose 5%-Lr W/20meq Kcl) 1,000 mls @ 150 mls/hr IV .Q6H40M [facility] Last Admin: 06/23/18 17:22 Dose: 150 mls/hr Thiamine HCl 100 mg/ Sodium (Chloride) 51 mls @ 50 mls/hr IV DAILY [facility] Iron Carb/Multivit/[place]/Folic Acid (Multivitamin W/Minerals) 1 tab PO DAILY [facility] Ketorolac Tromethamine (Toradol) 30 mg IV Q6HP PRN PRN Reason: Pain Stop: 06/24/18 17:12 Lorazepam (Ativan) 0 mg IV Q2HP PRN; Protocol PRN Reason: Alcohol Withdrawal Last Admin: 06/23/18 19:55 Dose: 1 mg Naloxone HCl (Narcan) 0.1 mg IV Q2MIN PRN PRN Reason: Opiate Reversal Oxycodone HCl (Roxicodone) 5 mg PO Q4HP PRN PRN Reason: Pain Level 2-6 Last Admin: 06/23/18 17:31 Dose: 5 mg Pantoprazole Sodium (Protonix) 40 mg IV BIDAC [facility] Last Admin: 06/23/18 17:22 Dose: 40 mg Sodium Chloride (Saline Flush) 10 ml IV Q8 [facility] Last Admin: 06/23/18 14:18 Dose: Not Given Sodium Chloride (Saline Flush) 10 ml IV Q8 [facility] Last Admin: 06/23/18 14:18 Dose: Not Given Transfer Discharge Sum: Hosp Hospital course: MMs. Parra is a 27 year old F with h/o hep c, heavy etoh consumption presents to the ER today for evaluation of abdominal pain. Patient on my eval was drowsy , s/p medication effect? patient history from chart and talking with the boyfriend in the room The pt has h/o heavy etoh consumption, she did not tell me how much but boyfriend noted she wakes up and starts drinking till the end of the day, also admitted thc, but denies other substances. pt notes pain in abdomen, every where started yesterday, nausea and some vomiting, worse with activity, worse with movement, better with laying still. This AM pain got worse, mother decided o bring her in. Denies fever, but has chills and hot flashes. The patient in the ER noted to be hemodynamically stable, labs stable, K 3.3, lipase 498, CT shows simple pancreatitis with periipancreatic fluid collection. Patient is being admitted to the hospital for further management. Unable to determine last drink, but boyfriend notes that she has h/o withdrawal and seizures. Educated pt and boyfriend the nature of disease and possibility of high risk mortality and morbidity because of pancreatitis. 06/23 Patient seen examined, overnight stble, but very tachcyardic, hr 120-130 this AM CIWA Scores high, needing frequent assesstment Lipase trending up now 1700's pt still has abdominal pain, but not complaining much, on ativan and dilaudid for now Her hb trended up today? abdomen is somewhat distrended only 250 cc documented urine output. will place [place], on talking with nurse, pt missed the urine hat? Given her pancreatitis issue, need for closer monitoring, tachcyardia, alcohol withdrawal, will xfer her to PCU status. Patient condition worsened, her urine output dropped, not much urine since this afternoon. IV bolus x 2 given without much repsonse. abdomen distended, tender to palpate. Intraabdominal pressure is 18mmhg, Discussed with nephrology advised surgery mimaal Discussed [facility] who noted that the patient is too complicate to be managed in the hospital at this time, advised transfer to a higher center Spoke with Dr Maciel who graciously accepted the patient for transfer to [facility]. Family notified. - Time Spent with Patient Total time spent providing and/or coordinating transfer services: Greater than 30 minutes Transfer Discharge Sum: Exam - Constitutional Vitals: Vital Signs Temp Pulse Resp BP BP Pulse Ox 06/23/18 20:03 95 06/23/18 20:01 20 133/100 95 06/23/18 20:00 97.5 F 16 06/23/18 19:31 150/100 94 06/23/18 19:16 94 06/23/18 19:01 14 148/93 94 06/23/18 18:02 158/104 98 06/23/18 17:31 159/113 98 06/23/18 17:01 161/93 06/23/18 16:31 148/109 97 06/23/18 16:30 97.6 F 20 154/105 95 06/23/18 16:07 94 06/23/18 16:01 154/105 97 06/23/18 15:31 151/100 96 06/23/18 15:01 140/97 96 06/23/18 14:31 121/107 95 06/23/18 14:16 125/89 95 06/23/18 14:01 147/107 98 06/23/18 13:57 137/102 98 06/23/18 12:00 97.2 F 117 H 16 123/110 97 06/23/18 08:00 96.5 F L 111 H 16 150/88 97 06/23/18 03:49 114 H 137/103 98 06/23/18 03:21 97.3 F 103 H 16 146/107 95 06/22/18 23:30 97.3 F 96 H 16 140/111 92 Intake and Output 06/23/18 06/23/18 06/23/18 05:59 13:59 21:59 Intake Total 1155 / 1155 1098 / 1098 3319 / 3319 Output Total 450 / 450 30 / 30 Balance 705 / 705 1098 / 1098 3289 / 3289 Intake: IV 668 / 668 1098 / 1098 2999 / 2999 Dextrose 5%-Lr W/20Meq KCl 1, 617 / 617 1000 / 1000 000 ml @ 150 mls/hr IV .Q6H40M [facility] Rx#:[id number] Vitamin B1 100 mg In Sodium 51 / 51 Chloride 0.9% 50 ml @ 50 mls/hr IV DAILY [facility] Rx#:[id number] Oral 487 / 487 320 / 320 Output: Urine Catheter Amount 30 / 30 Void Amount 250 / 250 Emesis 200 / 200 Other: Urine Appearance Clear Clear Urine Color Dark Shraddha Dark Shraddha Uretheral ([place]) Dark Shraddha # Voids 1 1 2 Weight 150 lb 160 lb 11.2 oz Patient Weight 06/24/18 05:59 Weight 160 lb 11.2 oz Additional comments: Constitutional; Afebrile, drowsy, Eyes- No icterus, , No periorbital swelling Ears- Ext ear normal, hearing normal to conversation. Neck- Midline trachea, supple Respiratory system: Air Entry equal on both sides, No crackles or wheezing, no rhonchi. CVS- Rate tachycardic,rhythm regular, S1,S2 heard, no gallop, no rub. Abdomen- Soft distended, tender, hypoactive bowel sounds MOVER- AOOx1, moving all extremities, no gross focal deficit noted. Transfer Discharge Sum: Data Procedures and tests throughout hospitalization: Pending Orders 06/22/18 Consult to Physician [CONS] Stat 06/22/18 17:10 Resuscitation Status Routine 06/22/18 18:03 Case Management Referral .Routine Admit as Inpatient Routine Ambulate-Progressive PRN Bladder Scan .PRN CIWA Protocol Q2H Condition Routine Elevate head of bed .ROUTINE IV Insertion/Management QSHIFT Intake and Output qshiftio Notify Provider .routine Notify Provider PRN Seizure precautions NOW VTE Risk: Assessment ONCE Vital Signs Q4 Weight Monitoring DAILY Weight Monitoring QHS RD to Adjust Diet/Supplements as Needed Routine Incentive Spirometry Assess/Tx Q2HWA Pulse Oximetry CONT 06/22/18 18:04 Clear Liquid Diet 06/23/18 12:52 [place] [Indwelling Urinary Catheter] CONT 06/23/18 13:31 Dextrose 5%-Lr W/20Meq KCl 1,000 ml IV 150 mls/hr HYDROmorphone [Dilaudid] 0.5 - 1 mg IV Q2HP PRN Haloperidol Lactate [Haldol] 0.5 mg IM Q2HP PRN Ketorolac [Toradol] 30 mg IV Q6HP PRN LORazepam [Ativan] See Protocol IV Q2HP PRN Naloxone HCl [Narcan] 0.1 mg IV Q2MIN PRN cloNIDine HCL [Catapres] 0.1 mg PO Q4HP PRN oxyCODONE HCL [Roxicodone] 5 mg PO Q4HP PRN 06/23/18 14:00 0.9 % Sodium Chloride [Saline Flush] 10 ml IV Q8 0.9 % Sodium Chloride [Saline Flush] 10 ml IV Q8 06/23/18 15:41 Consult to Physician [CONS] Routine 06/23/18 17:00 Diazepam [Valium] 5 mg PO Q8H Pantoprazole [Protonix] 40 mg IV BIDAC 06/23/18 20:39 XR chest 1V Stat 06/23/18 21:00 Heparin 5,000 unit SQ Q12 06/24/18 04:00 Amylase DAILY CRP [C-Reactive Protein] Routine Complete Blood Count DAILY Inpatient Panel DAILY Lipase DAILY 06/24/18 09:00 Folic Acid 1 mg PO DAILY Multivit,Ther Iron,Ca,FA & Min [Multivitamin W/Minerals] 1 tab PO DAILY Thiamine [Vitamin B1] 100 mg 0.9 % Sodium Chloride [Sodium Chloride 0.9%] 50 ml IV DAILY 06/25/18 04:00 Amylase DAILY Complete Blood Count DAILY Inpatient Panel DAILY Lipase DAILY 06/26/18 04:00 Amylase DAILY Complete Blood Count DAILY Inpatient Panel DAILY Lipase DAILY 06/27/18 04:00 Amylase DAILY Complete Blood Count DAILY Inpatient Panel DAILY Lipase DAILY 06/28/18 04:00 Amylase DAILY Complete Blood Count DAILY Inpatient Panel DAILY Lipase DAILY 06/29/18 04:00 Amylase DAILY Complete Blood Count DAILY Inpatient Panel DAILY Lipase DAILY Transfer Discharge Sum: A/P - Plan Overall status at transfer: patient is not back to baseline Disposition: General Acute Hospital
--- NOTE | 2018-06-24 06:30 | XRay Report ---
CLINICAL INFORMATION: NG placement COMPARISON: None. FINDINGS: NG tube overlies the gastric body. Heart size, mediastinum and pulmonary vessels are normal. Lungs are clear. No effusions. IMPRESSION: NG tube in satisfactory position. No acute pulmonary disease Interpreted and Authenticated by: Moiz Walsh 06/24/18
[2018-06-24] MEDS ORDERED: FOLIC ACID 1 MG TABLET PO SCH (09:00)
[2018-06-24] MEDS ORDERED: THIAMINE 100 MG in 0.9 % SODIUM CHLORIDE 50 ML IV SCH (09:00)
[2018-06-24] MEDS ORDERED: MULTIVIT,THER IRON,CA,FA & MIN 1 TABLET PO SCH (09:00)
== END 2018-06-23 21:33 | disposition short-term general hospital (02) | DRG 438 ==
LOC: ED 11:10 → MEDSUR 17:45 → ICU 06-23 10:15
PROVIDERS: ADMIT Internal Medicine; ATTEND Internal Medicine